=== PATIENT | female | born 1985 | race Caucasian/White ===

== ENCOUNTER 2016-08-21 04:54 | Inpatient (IN) | payer MEDICAID, OTHER ==
[~2016-08-21] VITALS: Ht 144.8 cm; Wt 51.8 kg
[2016-08-21 05:06] VITALS: Ht 144.8 cm; Wt 51.8 kg
[2016-08-21 05:18] VITALS: BP 104/71; PULSE 86; RESP 18
[2016-08-21] MEDS: LACTATED RINGER'S 1,000 ML IV SCH ×3 (05:28→20:08)
[2016-08-21] MEDS ORDERED: CEFAZOLIN 2 GM/50 ML (PMX) 50 ML IV SCH (05:30)
[2016-08-21] MEDS ORDERED: OXYTOCIN 30 UNITS/LR 500 ML IV SCH (05:30)
[2016-08-21] MEDS ORDERED: METHYLERGONOVINE 0.2 MG INJ IM PRN ×2 (05:30→14:00)
[2016-08-21] MEDS ORDERED: MISOPROSTOL 200 MCG TAB PR PRN ×2 (05:30→14:00)
[2016-08-21] MEDS ORDERED: OXYTOCIN 30 UNITS/LR 500 ML IV PRN ×2 (05:30→14:00)
[2016-08-21] MEDS ORDERED: CARBOPROST 250 MCG INJ IM PRN ×2 (05:30→14:00)
[2016-08-21 05:53] LABS: ADD SCAN DIFF NO
[2016-08-21 05:59] LABS: BASOPHILS % 0.3 % (0.0-2.0); EOSINOPHILS # 0.2 10^3/ul (0.0-0.5); HEMATOCRIT 34.9 % (37.0-47.0); HEMOGLOBIN 11.7 g/dl (12.0-16.0); LYMPHOCYTES # 1.9 10^3/ul (0.8-2.9); LYMPHOCYTES % 25.4 % (15.0-51.0); MEAN CORPUSCULAR HEMOGLOBIN 28.1 pg (29.0-33.0); MEAN CORPUSCULAR HGB CONC 33.5 g/dl (32.0-37.0); MEAN CORPUSCULAR VOLUME 83.9 fl (82.0-101.0); MONOCYTE # 0.5 10^3/ul (0.3-0.9); MONOCYTES % 6.9 % (0.0-11.0); NEUTROPHIL # 4.9 10^3/ul (1.6-7.5); PLATELET COUNT 187 10^3/UL (140-415); RED BLOOD COUNT 4.16 10^6/ul (4.20-5.40); RED CELL DISTRIBUTION WIDTH 13.6 % (11.5-14.5); WHITE BLOOD COUNT 7.5 10^3/ul (4.8-10.8)
[2016-08-21 06:14] LABS: INR 0.84; PROTIME 11.5 Sec (12.2-14.2); PT RATIO 0.9
[2016-08-21 06:15] LABS: PARTIAL THROMBOPLASTIN TIME 27.7 Sec (25.0-35.0)
[2016-08-21] MEDS ORDERED: ONDANSETRON 4 MG INJ ONE (07:25)
[2016-08-21] MEDS ORDERED: CITRIC ACID/NA CITRATE 30 ML CUP ONE (07:25)
[2016-08-21] MEDS ORDERED: ONDANSETRON 4 MG INJ IV ONE (07:30)
[2016-08-21] MEDS ORDERED: CITRIC ACID/NA CITRATE 30 ML CUP PO ONE (07:30)
[2016-08-21] MEDS ORDERED: OXYTOCIN 10 UNIT INJ ONE (08:07)
[2016-08-21] MEDS ORDERED: morphine SULFATE/PF (10 MG/10 ML) INJ ONE (08:07)
[2016-08-21] MEDS ORDERED: KETOROLAC 30 MG INJ ONE (08:07)
[2016-08-21] MEDS ORDERED: DEXAMETHASONE 4 MG/ML 1 ML INJ ONE (08:07)
[2016-08-21] MEDS ORDERED: METOCLOPRAMIDE 10 MG INJ ONE (08:07)
[2016-08-21] MEDS ORDERED: PHENYLephrine (100 MCG/ML) 5ML SYG ONE (08:10)
[2016-08-21] MEDS ORDERED: KETOROLAC 30 MG INJ IV PRN (09:00)
[2016-08-21] MEDS ORDERED: HYDROmorphONE 1 MG/ML SYG IV PRN ×4 (09:00→18:30)
[2016-08-21] MEDS ORDERED: morphine 2 MG INJ IV PRN ×2 (09:00)
[2016-08-21] MEDS ORDERED: NALOXONE (0.4 MG/ML) INJ IV PRN ×2 (09:00→18:30)
--- NOTE | 2016-08-21 09:05 | HP ---
DATE OF ADMISSION: 08/21/2016 HISTORY OF PRESENT ILLNESS: This is a 30-year-old female, 2, para 1, history of pr evious with an EDC of 08/28/2016 per the first ultrasound on 08/21/2016 by LMP. Admitted at 39 weeks' gestation to [facility] for repeat . The patient also had r equested bilateral tubal ligation at the time of her section. She has been counseled regar ding the tubal ligation and future failure to conceive, increased risk of ectopic and comp lication that also comes from the with tubal ligation, including bowel or bladder injury, infection, hemorrhage, and hematoma. The patient would like to proceed with this procedure. This p atient has been under the care of the [facility] and her course was not compl icated with gestational diabetes or -induced hypertension, and the test for GBS has been ne gative. GYNECOLOGIC HISTORY: Menarche at age 13, regular period every 28 days. History of 1 previous C-sec tion due to the oligohydramnios. PAST MEDICAL HISTORY: No other surgery or hospitalization has been recorded in the patient's prenat al. ALLERGIES: SHE IS NOT ALLERGIC TO ANY KNOWN MEDICATION. SOCIAL HISTORY: Denies smoking and drinking. FAMILY HISTORY: Positive for diabetes. REVIEW OF SYSTEMS: Within normal. PHYSICAL EXAMINATION: VITAL SIGNS: Height 4 feet 8 inches, 113 pounds, with a blood pressure of 99/75, pulse of 72, respi rations 18, and temperature 98.4. HEAD, EARS, NOSE AND THROAT: Negative. NECK: Supple. No thyromegaly. LUNGS: Clear to P and A. HEART: Normal sinus rhythm, no murmur. BREASTS: Status compatible with state of the . No abnormal palpable mass. No nipple retr action or discharge. No axillary adenopathy, no supraclavicular adenopathy. ABDOMEN: Measures approximately 36 cm from symphysis pubis with a heart rate category 1. PELVIC: Examination deferred. EXTREMITIES: No edema, no varicosities. IMPRESSION: 1. Intrauterine at 39 weeks' gestation. 2. History of 1 previous section, request for tubal ligation. The patient is aware of the complication of the surgery, including bowel or bladder injury, infection, hemorrhage, and hematoma , and also the failure rate of tubal ligation, increased risk of ectopic and she is reynaldo dawson to go ahead with the repeat and bilateral tubal ligation. Dictated By: HUI ALBERT/ZINA Conf#: [id number] DID#: [id number]
--- NOTE | 2016-08-21 11:39 | OPR ---
DATE OF OPERATION: 08/21/2016 PREOPERATIVE DIAGNOSES: 1. Intrauterine at 39 weeks' gestation. 2. History of previous section. 3. Request for voluntary sterilization, bilateral tubal ligation. POSTOPERATIVE DIAGNOSES: 1. Intrauterine at 39 weeks' gestation. 2. History of previous section. 3. Request for voluntary sterilization, bilateral tubal ligation. OPERATION PERFORMED: Repeat vertical section. SURGEON: Hui Mohamud MD DIET AIDE: Celi Bronson MD ANESTHESIA: Spinal. ANESTHESIOLOGIST: Dr. Barksdale FINDINGS: Live baby girl with the 9 and 9. DETAILS OF THE PROCEDURE: Under satisfactory spinal anesthesia, the patient was prepped and draped and placed in supine position, tilted to the left. A vertical incision was made. Old scar was slade juan. Incision carried through the subcutaneous tissue. Fascia incised to the length of the incisio n. Rectus muscles were exposed and divided in midline. Peritoneum exposed, entered through a verti isabella incision. Exploration of abdomen, gravid uterus, term, normal-appearing tubes and ovaries. Kit dder flap developed. Transverse incision was made in the lower segment of the uterus. Amniotic sac ruptured. Clear amniotic fluid noted. Live baby girl was delivered from unengaged vertex. Nasal oropharyngeal suction was performed and baby handed to the team for immediate attention. T he patient received 20 units of Pitocin. Placenta delivered manually intact. Uterine cavity cleane d with wet sponge, drainage established. Uterus closed in 2 layers using Monocryl #1 in continuous fashion. Bilateral tubal ligation performed by identifying the ampullar section of the right fallop irina tube which was grasped by a [place]. A loop was made. Suture material used, #0 plain catgut wa s reinforced with the same suture material. The top of the loop 3/4 of inch was excised. The cut e nd of the tube was cauterized and the specimen submitted for the pathology. The same procedure perf ormed for the opposite side. Peritoneal cavity irrigated with warm saline. Sponge, needle, and ins trument reported to be correct. Abdominal peritoneum closed with 2-0 chromic catgut continuously. Rectus muscle approximated with 2 interrupted chromic catgut, fascia closed with a double looped PDS 1 in continuous fashion. Subcutaneous tissue approximated with 2-0 chromic catgut. Skin closed wi th 3-0 Monocryl for suture. Estimated blood loss 600 to 700 mL. Urine bag contained 200 mL of hailey r urine. The patient tolerated the procedure well, transferred to recovery room in a good condition . Dictated By: HUI ALBERT/ZINA Conf#: [id number] DID#: [id number]
--- NOTE | 2016-08-21 13:04 | DELSUM ---
Delivery Summary A-C Datetime Report Generated by CPN: 08/21/2016 13:04 DELIVERY PERSONNEL Felt Coverer: Jesus, Anna MATERNAL INFORMATION Delivery Anesthesia: Spinal Medications in Delivery: LR WITH 30 UNITIS PITOCIN Estimated Blood Loss (ml): 500 Placenta Cultured: No Maternal Complications: None LABOR SUMMARY EDC: 08/28/2016 00:00 No. Babies in Womb: 1 Attempted: No Labor Anesthesia: None LABOR INFORMATION Reason for Induction: Not Applicable Oxytocin: N/A Group B Beta Strep: Negative Antibiotics # of Doses: ANCEF 2GRAMS X1 Antibiotics Time of Last Dose: 08/21/2016 08:00 Steroids Given: None Reason Steroids Not Administered: Not Applicable MEMBRANES Membranes Rupture Method: Artificial Rupture of Membranes: 08/21/2016 08:18 Length of Rupture (hr): 0.02 Amniotic Fluid Color: Bloody Amniotic Fluid Amount: Moderate Amniotic Fluid Odor: Normal STAGES OF LABOR Stage 3 hr: 0 Stage 3 min: 1 CSECTION DELIVERY Primary Indication: Repeat Elective Other Primary Indication: Repeat Section with Bilateral Tubal Ligation Secondary Indication: Repeat Elective CSection Urgency: Elective CSection Incidence: Repeat Labor: No Labor Elective: Elective CSection Incision: Classical Sterilization Procedure: [place] BABY A INFORMATION Delivery Date/Time: 08/21/2016 08:19 Method of Delivery: Born in Route : No : N/A Forceps: N/A Vacuum Extraction: N/A Shoulder Dystocia : N/A SHOULDER DYSTOCIA BABY A Delivery Date/Time: 08/21/2016 08:19 PRESENTATION/POSITION BABY A Presentation: Cephalic Cephalic Presentation: Vertex Vertex Position: Right Occipital Posterior Breech Presentation: N/A PLACENTA INFORMATION BABY A Placenta Delivery Time : 08/21/2016 08:20 Placenta Method of Delivery: Manual Removal Placenta Status: Delivered SCORES BABY A Heart Rate 1 min: >100 bpm Resp Effort 1 min: Good Cry Reflex Irritability 1 min: Cough/Sneeze/Pulls Away Muscle Tone 1 min: Active Motion Color 1 min: Body [place], Extremit Blue Resuscitation Effort 1 min: Tactile Stimulation SCORE 1 MIN: 9 Heart Rate 5 min: >100 bpm Resp Effort 5 min: Good Cry Reflex Irritability 5 min: Cough/Sneeze/Pulls Away Muscle Tone 5 min: Active Motion Color 5 min: Body [place], Extremit Blue Resuscitation Effort 5 min: Tactile Stimulation SCORE 5 MIN: 9 INFORMATION BABY A Gestational Age at Delivery: 39.0 Gestational Status: Full Term- 39- 40.6 Weeks Infant Outcome : Liveborn Condition : Stable Infant Sex: Female IDENTIFICATION/MEDS BABY A ID Band Number: [id number] ID Band Location: Right Leg; Left Arm Sensor Applied: Yes Sensor Number: [id number] Sensor Location : Cord Clamp Vitamin K Given : Not Given Erythromycin Given: Not Given WEIGHT/LENGTH BABY A Birthweight (gm): 2645 Weight (lb): 5 Weight (oz): 13 Infant Length (in): 19.00 Length (cm): 48.26 CORD INFORMATION BABY A No. Cord Vessels: 3 Nuchal Cord : N/A Cord Blood Taken: Yes Infant Suction: Mouth; Nose ASSESSMENT BABY A Complications: None Physical Findings at Delivery: Within Normal Limits Respirations: Appears Normal Chief Airport Guide/ALS Called : No Care By: Anabel DE LOS SANTOS/Amena Robison RT Transferred To: Remains with Mother
[2016-08-21 13:40] VITALS: BP 102/58; PULSE 72; RESP 18
[2016-08-21] MEDS ORDERED: OXYCODONE/ACETAMINOPHEN (5/325) TAB PO PRN ×2 (14:00)
[2016-08-21] MEDS ORDERED: ACETAMINOPHEN/CODEINE #3 TAB PO PRN ×2 (14:00)
[2016-08-21] MEDS ORDERED: LANOLIN 7 GM TUBE TOP PRN (14:00)
[2016-08-21] MEDS ORDERED: CEFAZOLIN 1 GM/50 ML (PMX) 50 ML IVPB SCH (14:00)
--- NOTE | 2016-08-21 14:20 | NSTRPT ---
NST Information Datetime Report Generated by CPN: 08/21/2016 14:19 Datetime: 08/17/2016 08:58 NST Information EGA: 38.3 NST Duration (Min): 26 Datetime: 08/15/2016 10:51 NST Information EGA: 38.1 Datetime: 08/15/2016 10:45 NST Duration (Min): 39 Electronically Signed By E-Signature: with User ID: [id number]
[2016-08-21] MEDS: OXYTOCIN 30 UNITS/LR 500 ML IV SCH ×2 (15:24→17:51)
[2016-08-21 16:00] VITALS: BP 109/73; PULSE 75; RESP 18
[2016-08-21] MEDS ORDERED: ZOLPIDEM 5 MG TAB PO PRN (18:30)
[2016-08-21] MEDS ORDERED: PROCHLORPERAZINE 10 MG INJ IV PRN (18:30)
[2016-08-21] MEDS ORDERED: ONDANSETRON 4 MG INJ IV PRN (18:30)
[2016-08-21] MEDS ORDERED: DIPHENHYDRAMINE 50 MG INJ IV PRN (18:30)
[2016-08-21 20:00] VITALS: BP 94/62; PULSE 75; RESP 18
[2016-08-21] MEDS: SENNA/DOCUSATE NA (8.6MG/50MG) TAB PO SCH (20:48)
[2016-08-22 00:30] VITALS: BP 99/63; PULSE 75; RESP 18
[2016-08-22] MEDS: KETOROLAC 30 MG INJ IV PRN ×2 (00:47→08:16)
[2016-08-22] MEDS: LACTATED RINGER'S 1,000 ML IV SCH (03:58)
[2016-08-22 04:05] VITALS: BP 82/51; PULSE 80; RESP 18
[2016-08-22 08:14] LABS: ADD SCAN DIFF NO
[2016-08-22 08:16] VITALS: BP 99/54; PULSE 81; RESP 18
[2016-08-22] MEDS: SENNA/DOCUSATE NA (8.6MG/50MG) TAB PO SCH ×2 (08:16→21:36)
[2016-08-22 08:23] LABS: BASOPHILS % 0.1 % (0.0-2.0); EOSINOPHILS # 0.1 10^3/ul (0.0-0.5); EOSINOPHILS % 0.7 % (0.0-7.0); HEMATOCRIT 28.9 % (37.0-47.0); HEMOGLOBIN 9.7 g/dl (12.0-16.0); LYMPHOCYTES # 2.5 10^3/ul (0.8-2.9); LYMPHOCYTES % 29.5 % (15.0-51.0); MEAN CORPUSCULAR HEMOGLOBIN 28.6 pg (29.0-33.0); MEAN CORPUSCULAR HGB CONC 33.6 g/dl (32.0-37.0); MEAN CORPUSCULAR VOLUME 85.3 fl (82.0-101.0); MEAN PLATELET VOLUME 11.9 fl (7.4-10.4); MONOCYTE # 0.5 10^3/ul (0.3-0.9); MONOCYTES % 6.1 % (0.0-11.0); NEUTROPHIL # 5.4 10^3/ul (1.6-7.5); NEUTROPHILS % 63.3 % (39.0-77.0); PLATELET COUNT 171 10^3/UL (140-415); RED BLOOD COUNT 3.39 10^6/ul (4.20-5.40); WHITE BLOOD COUNT 8.6 10^3/ul (4.8-10.8)
--- NOTE | 2016-08-22 12:45 | PN ---
Date/Time of Note Date/Time of Note DATE: 08/22/16 TIME: 12:44 OB Subjective Subjective Subjective Post day 1 Afebrile vital signs stable abdomen is incision dry bowel sounds lochia normal extremity normal ambulation recommended Laboratory Tests Test 08/22/16 06:36 Basophils # 0.010^3/ul Basophils % 0.1% Eosinophils # 0.110^3/ul Eosinophils % 0.7% Hematocrit 28.9% Hemoglobin 9.7g/dl Lymphocytes # 2.510^3/ul Lymphocytes % 29.5% Mean Corpuscular Hemoglobin 28.6pg Mean Corpuscular Hemoglobin Concent 33.6g/dl Mean Corpuscular Volume 85.3fl Mean Platelet Volume 11.9fl Monocytes # 0.510^3/ul Monocytes % 6.1% Neutrophils # 5.410^3/ul Neutrophils % 63.3% Nucleated Red Blood Cells # 0.010^3/ul Nucleated Red Blood Cells % 0.0/100WBC Platelet Count 22398^3/UL Red Blood Count 3.3910^6/ul Red Cell Distribution Width 14.0% White Blood Count 8.610^3/ul Current Medications Medications (Trade) Dose Ordered Sig/Zia Route PRN Reason Start Time Stop Time Status Last Admin Dose Admin Lactated Ringer's 1,000 ml @ 125 mls/hr Q8H IV 08/21/16 05:11 08/22/16 03:58 Cefazolin Sodium/ Dextrose 50 ml @ 100 mls/hr ONCE IV 08/21/16 05:30 08/21/16 13:59 DC Oxytocin/Lactated Ringer's 500 ml @ 125 mls/hr ONCE IV 08/21/16 05:30 08/21/16 14:00 DC Oxytocin/Lactated Ringer's 500 ml @ 0 mls/hr ONCE PRN IV For Hemorrhage Management 08/21/16 05:30 08/21/16 14:00 DC 08/21/16 11:09 Methylergonovine Maleate (Methergine) 0.2 mg ONCE PRN IM VAGINAL BLEEDING 08/21/16 05:30 08/21/16 14:00 DC Carboprost Tromethamine (Hemabate) 250 mcg ONCE PRN IM VAGINAL BLEEDING 08/21/16 05:30 08/21/16 14:00 DC Misoprostol (Cytotec) 1,000 mcg ONCE PRN MD VAGINAL BLEEDING 08/21/16 05:30 08/21/16 13:59 DC Citric Acid/ Sodium Citrate (Bicitra) 30 ml STK-MED ONCE .ROUTE 08/21/16 07:25 08/21/16 07:26 DC Ondansetron HCl (Zofran Inj) 4 mg STK-MED ONCE .ROUTE 08/21/16 07:25 08/21/16 07:26 DC Ondansetron HCl (Zofran Inj) 4 mg pre-procedure ONCE IV 08/21/16 07:30 08/21/16 07:31 DC 08/21/16 07:43 Citric Acid/ Sodium Citrate (Bicitra) 30 ml pre-procedure ONCE PO 08/21/16 07:30 08/21/16 07:31 DC 08/21/16 07:43 Morphine Sulfate (Duramorph) 10 mg STK-MED ONCE .ROUTE 08/21/16 08:07 08/21/16 08:08 DC Metoclopramide HCl (Reglan) 10 mg STK-MED ONCE .ROUTE 08/21/16 08:07 08/21/16 08:08 DC Oxytocin (Oxytocin) 10 units STK-MED ONCE .ROUTE 08/21/16 08:07 08/21/16 08:08 DC Ketorolac Tromethamine (Toradol) 30 mg STK-MED ONCE .ROUTE 08/21/16 08:07 08/21/16 08:08 DC Dexamethasone (Decadron) 4 mg STK-MED ONCE .ROUTE 08/21/16 08:07 08/21/16 08:08 DC Phenylephrine HCl (Michael-Synephrine Inj Syg) 500 mcg STK-MED ONCE .ROUTE 08/21/16 08:10 08/21/16 08:11 DC Naloxone HCl (Narcan) 0.1 mg Q2M PRN IV FOR RESP RATE 8 OR LESS 08/21/16 09:00 08/21/16 13:59 DC Ketorolac Tromethamine (Toradol) 30 mg Q6H PRN IV PAIN 08/21/16 09:00 08/21/16 13:59 DC Morphine Sulfate (morphine) 2 mg Q3H PRN IV PAIN LEVEL 1-5 08/21/16 09:00 08/21/16 13:59 DC Morphine Sulfate (morphine) 4 mg Q3H PRN IV PAIN LEVEL 6-10 08/21/16 09:00 08/21/16 13:59 DC Hydromorphone HCl (Dilaudid) 0.2 mg Q3H PRN IV PAIN LEVEL 1-5 08/21/16 09:00 08/21/16 13:59 DC Hydromorphone HCl (Dilaudid) 0.4 mg Q3H PRN IV PAIN LEVEL 6-10 08/21/16 09:00 08/21/16 13:59 DC Miscellaneous Information (* Miscellaneous Pharmacy Order) Duramorph: 0.2 mg Spi... GIVEN XX 08/21/16 09:00 08/21/16 13:59 DC Acetaminophen/ Codeine Phosphate (Tylenol No.3) 1 tab Q4H PRN PO PAIN LEVEL 4-6 08/21/16 14:00 Acetaminophen/ Codeine Phosphate (Tylenol No.3) 2 tab Q4H PRN PO PAIN LEVEL 7-10 08/21/16 14:00 Oxycodone/ Acetaminophen (Percocet (5/ 325)) 1 tab Q4H PRN PO PAIN LEVEL 4-6 08/21/16 14:00 Oxycodone/ Acetaminophen (Percocet (5/ 325)) 2 tab Q4H PRN PO PAIN LEVEL 7-10 08/21/16 14:00 Ibuprofen (Motrin) 600 mg Q6 PO 08/22/16 18:00 Simethicone (Mylicon) 160 mg Q8H PRN PO DISTENSION/GAS/BLOATING 08/21/16 14:00 Senna/Docusate Sodium (Senokot-S) 1 tab BID PO 08/21/16 21:00 08/22/16 08:16 Lanolin (Tcd-F-Goeqlm) 1 applic BEDSIDE MEDICATION PRN TOP BEDSIDE FOR JOURDAN TO NIPPLES 08/21/16 14:00 08/21/16 15:27 Diphtheria/ Tetanus/Acell Pertussis 0.5 ml 0.5 ml ONCE ONCE IM* 08/24/16 09:00 08/24/16 09:01 Oxytocin/Lactated Ringer's 500 ml @ 0 mls/hr ONCE PRN IV For Hemorrhage Management 08/21/16 14:00 Methylergonovine Maleate (Methergine) 0.2 mg ONCE PRN IM VAGINAL BLEEDING 08/21/16 14:00 Carboprost Tromethamine (Hemabate) 250 mcg ONCE PRN IM VAGINAL BLEEDING 08/21/16 14:00 Misoprostol 1000 mcg 1,000 mcg ONCE PRN MD VAGINAL BLEEDING 08/21/16 14:00 Cefazolin Sodium 50 ml @ 100 mls/hr ONCE IVPB 08/21/16 14:00 08/21/16 14:29 DC 08/21/16 15:24 Oxytocin/Lactated Ringer's 500 ml @ 125 mls/hr Q4H IV 08/21/16 13:51 08/21/16 15:24 Naloxone HCl (Narcan) 0.1 mg Q2M PRN IV FOR RESP RATE 8 OR LESS 08/21/16 18:30 08/22/16 18:29 Ketorolac Tromethamine (Toradol) 30 mg Q6H PRN IV PAIN 08/21/16 18:30 08/22/16 18:29 08/22/16 08:16 Hydromorphone HCl (Dilaudid) 0.2 mg Q3H PRN IV PAIN LEVEL 1-5 08/21/16 18:30 08/22/16 18:29 Hydromorphone HCl (Dilaudid) 0.4 mg Q3H PRN IV PAIN LEVEL 6-10 08/21/16 18:30 08/22/16 18:29 Diphenhydramine HCl (Benadryl) 25 mg Q6H PRN IV ITCHING 08/21/16 18:30 08/22/16 18:29 Ondansetron HCl (Zofran Inj) 4 mg Q6H PRN IV NAUSEA AND/OR VOMITING 08/21/16 18:30 08/22/16 18:29 Prochlorperazine (Compazine Inj) 10 mg ONCE PRN IV NAUSEA AND/OR VOMITING 08/21/16 18:30 08/22/16 18:29 Zolpidem Tartrate (Ambien) 5 mg HS MAY REPEAT X 1 PRN PO INSOMNIA 08/21/16 18:30 08/22/16 18:29 HUI RANDHAWA MD Aug 22, 2016 12:45
[2016-08-22 15:20] VITALS: BP 98/54; PULSE 69; RESP 18
[2016-08-22] MEDS: IBUPROFEN 600 MG TAB PO SCH (17:30)
[2016-08-22 19:50] VITALS: BP 102/52; PULSE 82; RESP 18
[2016-08-23] MEDS: IBUPROFEN 600 MG TAB PO SCH ×4 (00:54→17:37)
[2016-08-23 03:50] VITALS: BP 91/65; RESP 19
[2016-08-23 07:45] VITALS: BP 100/67; PULSE 68; RESP 19
[2016-08-23] MEDS: SENNA/DOCUSATE NA (8.6MG/50MG) TAB PO SCH ×2 (09:46→22:01)
[2016-08-23 16:00] VITALS: BP 111/59; PULSE 67; RESP 20
[2016-08-23 19:45] VITALS: BP 100/64; PULSE 80; RESP 20
[2016-08-24] MEDS: IBUPROFEN 600 MG TAB PO SCH ×5 (00:14→23:39)
[2016-08-24 03:45] VITALS: BP 102/68; PULSE 74; RESP 18
[2016-08-24 08:00] VITALS: BP 106/69; PULSE 74; RESP 17
[2016-08-24] MEDS ORDERED: DIPHTH/TET/ACEL PERTUSS (ADULT) 0.5 ML VIAL IM* ONE (09:00)
[2016-08-24] MEDS: SENNA/DOCUSATE NA (8.6MG/50MG) TAB PO SCH ×2 (09:22→20:38)
--- NOTE | 2016-08-24 13:08 | DS ---
Date/Time of Note Date/Time of Note DATE: 08/24/16 TIME: 13:01 Obstetrical Discharge Record Final Diagnosis Final Diagnosis: Term delivered Section Section: Repeat Condition on Discharge Physical Assessment Last Vitals: Post repeat dated 3 Vital signs stable afebrile abdomen is soft incision healing well patient had normal bowel movement, extremity normal, she was discharge home with follow-up instruction to be seen at the clinic in 4 days to discontinue bradley, patient received a prescription of analgesic, Motrin and Tylenol3 with home postop care instructions. Voiding: Yes Breast: Soft, non-tender, Filling Fundus: Firm Abdomen and Incision: Healing well dry free of inflammation Calf Tenderness: No Patient Condition: Good HUI RANDHAWA MD Aug 24, 2016 13:08
[2016-08-24 16:00] VITALS: BP 101/72; PULSE 76; RESP 17
[2016-08-24 20:00] VITALS: BP 100/63; PULSE 73; RESP 20
[2016-08-25 04:00] VITALS: BP 98/59; PULSE 64; RESP 20
[2016-08-25] MEDS: IBUPROFEN 600 MG TAB PO SCH (06:00)
[2016-08-25 08:04] VITALS: BP 105/59; PULSE 69; RESP 20
[2016-08-25] MEDS: SENNA/DOCUSATE NA (8.6MG/50MG) TAB PO SCH (09:17)
--- NOTE | 2016-08-25 10:05 | PD.PPDC ---
ELECTRICAL EQUIPMENT TESTER Discharge Instruction Condition Patient Condition: Good Diet Diet: Resume Regular Diet Activity/Restrictions Activity: Normal Activity May Shower Restrictions: No Exercising No Lifting No Driving No Sexual Activity Nothing in the Vagina No [place] No Tampons, douche Wound/Drain Care Instructions Wound/Drain Care Instructions: Remove Steri Strips in 1 week Follow-up Follow-up with Physician: 4, Day/Days Provider Information: Appointment clinic in 4 days to MAIA huerta. Referral Comment: [facility] Return to clinic for [facility] HELPER Instructions: Fever greater than 101 Worsening abdominal pain Excessive Vaginal Bleeding More than 2 pads per hour Unable to tolerate diet OB Instructions: Breast Tenderness Blurried Vision Headache Surgical Instructions: Incisional Drainage HUI RANDHAWA MD Aug 25, 2016 10:05
--- NOTE | 2016-08-25 10:08 | DS ---
Date/Time of Note Date/Time of Note DATE: 08/25/16 TIME: 10:05 Obstetrical Discharge Record Final Diagnosis Final Diagnosis: Term delivered Section Section: Repeat Condition on Discharge Physical Assessment Last Vitals: Post date 3 Afebrile vital signs stable abdomen is incision dry uterus lochia normal extremity normal advised to make appointment in 4 days to discontinue bradley Voiding: Yes Bowel Movement: Yes Breast: Soft, non-tender, Filling Fundus: Firm Abdomen and Incision: Healing well free of inflammation. Calf Tenderness: No Patient Condition: Good HUI RANDHAWA MD Aug 25, 2016 10:08
== END 2016-08-25 14:45 | disposition home or self-care (01) | DRG 766 ==
LOC: L-D 04:54 → PP1 13:38
PROVIDERS: ADMIT Obstetrics & Gynecology; ATTEND Obstetrics & Gynecology
PROC: 0UL70ZZ Occlusion of Bilateral Fallopian Tubes, Open Approach (ICD-10-PCS; 2016-08-21)
PROC: 10D00Z1 Extraction of Products of Conception, Low, Open Approach (ICD-10-PCS; principal; 2016-08-21 07:30)
PROC: 3E00X4Z Introduction of Serum, Toxoid and Vaccine into Skin and Mucous Membranes, External Approach (ICD-10-PCS; 2016-08-24)
DX: O34.211 Maternal care for low transverse scar from previous cesarean delivery (principal); Z23 Encounter for immunization; Z3A.39 39 weeks gestation of pregnancy; Z30.2 Encounter for sterilization; Z37.0 Single live birth
CPT/HCPCS: 85025; 85610; 85730; 86592; 86850; 86900; 86901; 87340; 88302; 90715; 94760; 99464; J0690; J1100; J1885; J2274; J2370; J2405; J2590; J2765; J7120

== ENCOUNTER 2016-10-17 12:01 | Emergency (ER) | payer MEDICAID ==
[~2016-10-17] VITALS: Ht 149.9 cm; Wt 48.0 kg
[2016-10-17 12:36] VITALS: Ht 149.9 cm; Wt 48.0 kg
[2016-10-17] MEDS ORDERED: AZIT250T94 PO (14:06)
[2016-10-17] MEDS ORDERED: D-ME473S18 PO (14:06)
--- NOTE | 2016-10-17 14:08 | ERD ---
ER Documentation Chief Complaint Date/Time DATE: 10/17/16 TIME: 14:07 Chief Complaint COUGH X2 WKS HPI This 31-year-old female presents with a 1-2 week history of productive cough. She may have had tactile fevers but no current fever no fever at triage. She is here with her to children with URI symptoms as well. ROS All systems reviewed and are negative except as per history of present illness. Medications Home Meds Active Scripts Dextromethorphan Hb-Promethazine Hcl (Promethazine DM Syrup) 473 Ml Syrup, 5 ML PO Q6H Y for COUGH, #4 OZ Prov:LIBIA CENTENO MD 10/17/16 Azithromycin* (Zithromax*) 250 Mg Tablet, 250 MG PO .ZPACK DIRECTED, #6 TAB TAKE 500 MG (2 TABS) THE FIRST DAY THEN 250 MG (1 TAB) DAYS 2-5 Prov:LIBIA CENTENO MD 10/17/16 Allergies Allergies: Coded Allergies: No Known Allergy (Unverified , 08/21/16) PMhx/Soc Medical and Surgical Hx: pt denies Medical Hx, pt denies Surgical Hx Hx Alcohol Use: No Hx Substance Use: No Hx Tobacco Use: No Physical Exam Vitals Vital Signs Date Time Temp Pulse Resp B/P Pulse Ox O2 Delivery O2 Flow Rate FiO2 10/17/16 12:36 98.4 86 18 107/63 97 Physical Exam Const: [], [id number] per Head: Atraumatic Eyes: Normal Conjunctiva ENT: Normal External Ears, Nose and Mouth. TMs and oropharynx normal per Neck: Full range of motion..~ No meningismus. Resp: Clear to auscultation bilaterally Cardio: Regular rate and rhythm, no murmurs Abd: Soft, non tender, non distended. Normal bowel sounds Skin: No petechiae or rashes Back: No midline or flank tenderness Ext: No cyanosis, or edema Neur: Awake and alert Psych: Normal Mood and Affect Procedures/MDM Patient presents with a productive cough last 2 weeks. Given the duration she will be treated with Zithromax and promethazine although this may be a viral illness. There is no evidence of respiratory distress or hypoxemia. The patient was stable with no new complaints during the ER course. Clinically, there is no current evidence to suggest meningitis, sepsis, acute abdomen, pneumonia, acute coronary syndrome, pulmonary embolism, or any other emergent condition appearing to require further evaluation or hospitalization. The patient should certainly return for any new or worsening symptoms per the aftercare instructions. They should otherwise follow-up with her primary care doctor for reevaluation this week. Departure Diagnosis: Primary Impression: Cough Condition: Stable Patient Instructions: Acute Bronchitis Additional Instructions: Cheque otro vez con garcia doctor primario en el proximo egan or regresa para mas o nueva simptomas. LIBIA CENTENO MD Oct 17, 2016 14:08
== END 2016-10-17 14:20 | disposition home or self-care (01) ==
LOC: FTE 12:01
DX: R05 Cough (principal)
CPT/HCPCS: 99283